=== PATIENT | male | born 1955 | race Caucasian/White ===

== ENCOUNTER 2020-07-05 09:02 | Outpatient (CLI) | payer MEDICARE, OTHER, SELFPAY ==
--- NOTE | ~2020-07-05 | US_ITS ---
EXAMINATION: US renal BI DATE: 07/05/2020 09:56 INDICATION: Stage III chronic kidney disease TECHNIQUE: Multiple ultrasound grayscale images of the kidneys were obtained. COMPARISON: CT dated 01/24/2018 FINDINGS: The right kidney measures 11.8 x 6.2 x 5.7 cm. The left kidney measures 11.1 x 4.4 x 5.0 cm. The kidn eys demonstrate normal echogenicity. Couple anechoic simple appearing left renal cysts the larger at the upper pole measuring 4.6 cm and the smaller at the lower pole measuring 1.6 cm. There is no hydro nephrosis in either kidney. No stones identified. The bladder is normal. IMPRESSION: 1. A couple simple left renal cysts. Otherwise normal kidneys with no hydronephrosis. Reviewed, dictated and finalized at location B. IMPRESSION: 1. A couple simple left renal cysts. Otherwise normal kidneys with no hydronep hrosis.
== END 2020-07-05 09:03 | disposition home or self-care (01) ==
LOC: ANHIMG 09:09
PROVIDERS: PCP Family Medicine; Visit Provider Internal Medicine Nephrology
DX: N18.3 Chronic kidney disease, stage 3 (moderate) (principal); N28.1 Cyst of kidney, acquired
CPT/HCPCS: 76775

== ENCOUNTER 2021-07-23 09:10 | Outpatient (CLI) | payer MEDICARE, OTHER, SELFPAY ==
--- NOTE | ~2021-07-23 | XR_ITS ---
XR abdomen/kub 1V 07/23/2021 09:31 Indication: Diarrhea. Bowel resection history. Procedure: KUB Comparison: CT dated 01/24/2018 Findings: Bowel pattern is nonobstructive. There is atherosclerotic change of the abdominal aorta wit h a estimated transverse dimension of approximately 7 cm. No acute osseous abnormality. Lung bases ar e unremarkable. Impression: 1: Infrarenal abdominal aortic aneurysm with a estimated size of 7 cm. Recommend correlation with con trast-enhanced CT. 2: Nonobstructive bowel gas pattern. Reviewed, dictated and finalized at location A. Impression: 1: Infrarenal abdominal aortic aneurysm with a estimated size of 7 cm. Recommen d correlation with contrast-enhanced CT. 2: Nonobstructive bowel gas pattern.
== END 2021-07-23 09:11 | disposition home or self-care (01) ==
LOC: ANHIMG 09:13
PROVIDERS: PCP Family Medicine; Visit Provider Nurse Practitioner Family
DX: R19.7 Diarrhea, unspecified (principal); I71.4 Abdominal aortic aneurysm, without rupture
CPT/HCPCS: 74018

== ENCOUNTER 2022-12-04 07:57 | Emergency (ER) | payer MEDICARE, OTHER, SELFPAY ==
[2022-12-04 08:01] VITALS: BP 108/82; PULSE 93; RESP 18; TEMP 37.5; O2SAT 96
[2022-12-04 08:59] LABS: Basophils Percent Auto 0.3 % (0.2-1.2); Eosinophils Percent Auto 9.6 % (0-4.4); Hemoglobin 13.1 g/dL (14.0-18.0); Immature Granulocyte Absolute 0.03 K/mm3 (0.00-0.031); Immature Granulocyte Percent A 0.3 % (0-0.5); Lymphocytes Absolute Auto 0.42 K/mm3 (0.9-3.2); Lymphocytes Percent Auto 4.2 % (18.3-44.2); Mean Corpuscular HGB Conc 33.6 g/dl (32-36); Mean Corpuscular Hemoglobin 30.9 pg (26-34); Mean Platelet Volume 9.1 fl (7.4-10.4); Monocytes Absolute Auto 0.6 K/mm3 (0.1-0.6); Monocytes Percent Auto 5.5 % (2.6-8.5); Neutrophils Percent Auto 80.1 % (45.5-73.1); Platelet Count Result 170 k/mm3 (150-375); Red Blood Count 4.24 M/mm3 (4.6-6.20); Red Cell Distribution Width 14.4 % (11.5-14.5)
[2022-12-04 09:00] VITALS: BP 106/53; PULSE 73; RESP 16; O2SAT 97
[2022-12-04 09:14] LABS: Alanine Aminotransferase 21 U/L (6-50); Albumin Level 4.3 g/dL (3.5-5.1); Alkaline Phosphatase 86 U/L (38-126); Anion Gap 4 mmol/L (8-16); Aspartate Amino Transferase 24 U/L (17-59); Bilirubin,Total 0.5 mg/dL (0.2-1.3); Blood Urea Nitrogen 18 mg/dL (9-20); CRP 2.5 mg/dL (<1.0); Calcium 8.9 mg/dL (8.4-10.2); Carbon Dioxide 26 mmol/L (22-30); Chloride 103 mmol/L (98-107); Estimated CRCL calculation 53 ml/min; Estimated Glomerular Filt Rate 50; Glucose 121 mg/dL (65-110); Potassium 4.3 mmol/L (3.4-5.0); Sodium 133 mmol/L (137-145); Uric Acid 8.6 mg/dL (3.5-8.5)
[2022-12-04 09:25] LABS: Influenza A QL RT-PCR Negative (Negative); Influenza B QL RT-PCR Negative (Negative); SARS-CoV-2 RNA PCR Negative
[2022-12-04] MEDS: KETOROLAC 15 MG/ML VIAL (*BKC) IV PUSH (09:27)
[2022-12-04] MEDS: SODIUM CHLORIDE 0.9% IV 1,000 ML 999 ML IV CONT (09:27)
[2022-12-04 09:35] LABS: Erythrocyte Sedimentation Rate 16 mm/hr (0-20)
[2022-12-04 10:00] VITALS: BP 109/51; PULSE 67; RESP 16; O2SAT 97
--- NOTE | 2022-12-04 10:23 | ED.EXTPRO ---
HPI - Extremity Problem General Chief complaint: Extremity Problem,Nontraumatic Stated complaint: pain in bilateral knees Time Seen by Provider: 12/04/22 08:04 History of Present Illness HPI Narrative: Patient is a 67-year-old male who presents ER with pain to the bilateral knees and ankles. Onset this morning. Has trouble ambulating due to the pain. Feels like the area might be more swollen. Has history of gout. Has bilateral knee replacements as well. 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 No fevers but did have some chills. No chest pain or chest pressure. Reports he had a dental procedure 2 weeks ago and took 3 antibiotics. No history of an infected joint. Related Data Home Medications Medication Instructions Recorded Confirmed lisinopril 40 mg tablet 40 mg PO DAILY 10/11/19 03/18/22 metoprolol succinate 100 mg 50 mg PO DAILY 10/24/19 03/18/22 tablet,extended release 24 hr simvastatin 40 mg tablet 40 mg PO DAILY 04/13/20 03/18/22 cholecalciferol (vitamin D3) 50 50 mcg PO DAILY 06/11/21 03/18/22 mcg (2,000 unit) chewable tablet Allergies Allergy/AdvReac Type Severity Reaction Status Date / Time methylprednisolone Allergy Mild Rash Verified 12/04/22 08:16 Review of Systems Review of Systems: All systems reviewed & are unremarkable except as noted in HPI and below Constitutional: Constitutional: Reports chills, Denies fatigue and Denies fever(s) ENT: Denies nasal congestion and Denies sore throat Cardiovascular: Cardiovascular: Denies chest pain, Denies rapid heart rate and Denies radiating jaw, neck or arm pain Respiratory: Respiratory: Denies cough and Denies dyspnea Musculoskeletal: Musculoskeletal: Reports arthralgias, Denies joint swelling and Denies muscle cramps PMF Past Medical History Medical History Arthritis CPAP (continuous positive airway pressure) dependence Diverticulitis Frequent loose stools Full dentures GERD (gastroesophageal reflux disease) Gout HTN (hypertension) Hyperlipidemia Hypothyroid Nicotine dependence Sleep apnea Tobacco abuse Wears glasses reading Surgical History Surgical History H/O colonoscopy H/O umbilical hernia repair History of appendectomy Family History Family History Mother Hypertension Sibling Alzheimer disease Other Diabetes mellitus Family history of coronary artery disease Family history of kidney disease Social History Social History Smoking packs per day: 0.5 Smoking cigarettes per day: 10.0 Tobacco type: cigarettes Second hand tobacco smoke exposure: Yes Alcohol intake: never Substance use: never Substance use type: does not use Occupation/Education: retired Gender identity (if verbalized by the patient): Male Spiritual care concerns: No Agree to blood products: Yes Exam Narrative: GENERAL: Well-appearing, well-nourished, and in no acute distress. HEAD: Normocephalic, atraumatic. ENT: Mucous membranes moist. CHEST: Clear to auscultation. No respiratory distress. HEART: Regular rate and rhythm. Normal peripheral pulses. EXTREMITIES: Normal range of motion of the ankles bilaterally without reproducible tenderness. No reproducible tenderness to the knees bilaterally with palpation but patient has decreased range of motion with flexion due to pain. SKIN: Warm, dry, no rash. NEURO: Alert and oriented x3. PSYCH: Normal mood and affect. Course Course Emergency Course: Patient resting comfortably. Feels much better after receiving some IV Toradol low-dose. He has been informed of his lab findings. I discussed the case with Dr. Carlson with orthopedic surgery. He believes with elevated uric acid and patient's previous history of gout as well as the lack of red and swollen joints is likely
[2022-12-04] MEDS: COLCHICINE 0.6 MG TABLET 1.2 MG PO (10:48)
[2022-12-04] MEDS: COLCHICINE 0.6 MG TABLET PO (10:49)
[2022-12-04 11:30] VITALS: BP 100/65; PULSE 68; RESP 20; O2SAT 97
== END 2022-12-04 11:30 | disposition home or self-care (01) ==
PROVIDERS: Emergency Provider Emergency Medicine; PCP Family Medicine
DX: M10.9 Gout, unspecified (principal); Z20.822 Contact with and (suspected) exposure to COVID-19; I10 Essential (primary) hypertension; E78.5 Hyperlipidemia, unspecified; E03.9 Hypothyroidism, unspecified; M19.90 Unspecified osteoarthritis, unspecified site; K21.9 Gastro-esophageal reflux disease without esophagitis; F17.210 Nicotine dependence, cigarettes, uncomplicated; Z96.653 Presence of artificial knee joint, bilateral
CPT/HCPCS: 36415; 80053; 84550; 85025; 85652; 86140; 87636; 96361; 96374; 99284; A9270; J1885; J7030

== ENCOUNTER 2023-07-31 15:08 | Outpatient (CLI) | payer MEDICARE, OTHER, SELFPAY ==
--- NOTE | ~2023-07-31 | XR_ITS ---
EXAMINATION:XR cervical spine 4-5V DATE: 07/31/2023 15:28 INDICATION: Neck pain TECHNIQUE: AP, lateral, lateral swimmers and odontoid views of the cervical spine are provided. COMPARISON: CT, 10/11/2019 FINDINGS: Alignment is normal. The odontoid process is intact. No fracture is identified. The vertebr al body heights are maintained. There is mild to moderate loss of intervertebral disc space height th roughout the cervical spine. There is also multilevel mild to moderate facet and uncovertebral joint osteoarthritis. Prevertebral soft tissues are normal. IMPRESSION: 1. Mild to moderate cervical spondylosis without acute findings. Reviewed, dictated and finalized at location F.
--- NOTE | ~2023-07-31 | XR_ITS ---
EXAMINATION: XR thoracic spine 3V DATE: 07/31/2023 15:28 INDICATION: Thoracic spine pain TECHNIQUE: AP, lateral and lateral swimmer's views of the thoracic spine were obtained. COMPARISON: None. FINDINGS: Bone alignment is normal. There is no fracture. There is mild to moderate loss of intervert ebral disc space height at multiple levels. Small degenerative osteophytes project from the anterior endplates of multiple vertebral bodies. IMPRESSION: 1. Moderate thoracic spondylosis without acute findings or significant interval change. Reviewed, dictated and finalized at location F.
== END 2023-07-31 15:09 | disposition home or self-care (01) ==
LOC: ANHIMG 15:12
PROVIDERS: PCP Family Medicine; Visit Provider Family Medicine
DX: M47.894 Other spondylosis, thoracic region (principal); M47.892 Other spondylosis, cervical region
CPT/HCPCS: 72050; 72072

== ENCOUNTER → 2023-08-10 09:11 | Outpatient (CLI) | payer MEDICARE, OTHER, SELFPAY ==
--- NOTE | ~2023-08-10 | MR_ITS ---
EXAMINATION: MR thoracic spine wo con DATE: 08/10/2023 10:11 INDICATION: Thoracic radiculopathy TECHNIQUE: Magnetic resonance imaging (MRI) of the thoracic spine was performed without intravenous c ontrast. Sagittal localizer T1-weighted FSE of the cervicothoracic spine was obtained. Thoracic spine sequences included sagittal T2-weighted FSE, sagittal T1-weighted SE, Sagittal T2-weighted FS FSE, a nd axial T2-weighted FSE. COMPARISON: None FINDINGS: 7 degrees mid to lower thoracic dextrocurvature and 5 degrees upper thoracic levocurvature. Sagittal alignment is normal. There are bulky right anterior endplate osteophytes at T8-T9 and T9-T10. There i s some marrow edema at the right side of theT10 vertebral body. There is also a small T1 hyperintense hemangioma in the T10 vertebral body. Marrow signal is otherwise normal throughout. Multilevel mild disc height loss throughout the thoracic spine. Small right paracentral disc protrusion at T3-T4 whic h flattens the right ventral surface of the cord and results in central canal stenosis. Small bilater al paracentral disc protrusions at T6-T7 also resulting in mild central canal stenosis. There are jarad ular fissures with small disc extrusions at the left subarticular zone at T9-T10 and T10-T11 with dis c material extending a few millimeter cephalad to the level of the inferior endplates of T9 and T10 r espectively. These each result in moderate left sided neural foraminal stenosis. Only minimal central canal stenosis at both levels. There is normal spinal cord signal. The conus terminates at the below the level of the field of imaging which is at the level of L1. Moderate bilateral facet osteoarthrit is at T9-T10 through T11-T12. There is minimal to mild facet osteoarthritis in the more cephalad thor acic spine. There is mild neural foraminal stenosis on the right at T9-T10 and T10-T11 and bilaterall y at T11-T12. Minimal neural foraminal stenosis at a few of the more cephalad levels. Paravertebral s oft tissues are unremarkable. IMPRESSION: 1. Mild thoracic spondylosis. Reviewed, dictated and finalized at location A.
--- NOTE | ~2023-08-10 | MR_ITS ---
EXAMINATION: MR cervical spine wo con DATE: 08/10/2023 10:01 INDICATION: Cervicalgia TECHNIQUE: Magnetic resonance imaging (MRI) of the cervical spine was performed without intravenous c ontrast. Sequences included sagittal T2-weighted FSE, sagittal T2-weighted FS FSE, sagittal T1-weight ed FSE, axial MERGE and axial T2-weighted FSE. COMPARISON: None FINDINGS: 7 degrees upper cervical dextrocurvature. Vertebral body heights are normal. Bone marrow signal int ensity is normal. Mild disc height loss at C3-C4, C5-C6 and C6-C7. Cord signal intensity is normal. V isualized cervical soft tissues are unremarkable. The following disc levels are specifically discusse d: C2-C3: The disc does not extend beyond the endplate margin. There is no uncovertebral joint osteoarth ritis. There is mild right and moderate left facet joint osteoarthritis. There is minimal left neural foraminal stenosis. There is no central canal stenosis. C3-C4: Disc is bulging. There is mild right and moderate left uncovertebral joint osteoarthritis. The re is mild right and severe left facet joint osteoarthritis. There is moderate right and moderate to severe left neural foraminal stenosis. There is mild central canal stenosis. C4-C5: Disc is mildly bulging. There is mild bilateral uncovertebral joint osteoarthritis. There is m ild right and severe left facet joint osteoarthritis. There is moderate bilateral neural foraminal st enosis. There is minimal central canal stenosis. C5-C6: Disc is bulging eccentric to the right. There is mild left and moderate right uncovertebral rin int osteoarthritis. There is moderate bilateral facet joint osteoarthritis. There is moderate bilater al neural foraminal stenosis. There is mild central canal stenosis with mild indentation of the right ventral surface of the cord. C6-C7: Disc is bulging, eccentric to the left with annular fissure. There is mild left and moderate r ight uncovertebral joint osteoarthritis. There is mild right and mild to moderate left facet joint os teoarthritis. There is mild left and mild to moderate right neural foraminal stenosis. There is mild central canal stenosis with mild indentation of the central to left ventral surface of the cord. C7-T1: The disc does not extend beyond the endplate margin. There is no uncovertebral joint osteoarth ritis. There is mild right and moderate left facet joint osteoarthritis. There is mild left neural fo raminal stenosis. There is no central canal stenosis. IMPRESSION: 1. Mild to moderate cervical spondylosis. Reviewed, dictated and finalized at location A.
== END ==
PROVIDERS: PCP Family Medicine; Visit Provider Family Medicine
DX: M43.04 Spondylolysis, thoracic region (principal); M43.02 Spondylolysis, cervical region
CPT/HCPCS: 72141; 72146

== ENCOUNTER 2024-01-13 02:21 | Day surgery (SDC) | payer MEDICARE, OTHER, SELFPAY ==
[2024-01-12 14:32] VITALS: BMI 36.6
[2024-01-13] VITALS (10 sets, daily range): BP systolic 109–153; BP diastolic 56–73; PULSE 58–64; RESP 14–18; O2SAT 95–98
--- NOTE | 2024-01-13 13:12 | WPDHPUPDATE1 ---
History and Physical Update Update Date/Time: 01/13/24 13:12 History and Physical has been reviewed, including an updated exam of the patient. There are NO changes in the patient's condition. Risks, benefits, and alternatives have been discussed and questions answered. Patient agrees to proceed with procedure.
--- NOTE | 2024-01-13 13:12 | WPDMODSED ---
Moderate Sedation Note-Pt Data Patient Data Diagnosis: Aortic stenosis and aortic regurgitation, dizziness Present Complaint: None Procedure to be performed/Plan: Transesophageal echocardiogram Allergies Allergy/AdvReac Type Severity Reaction Status Date / Time methylprednisolone Allergy Mild Rash Verified 01/13/24 11:31 Home Medications Medication Instructions Recorded Confirmed Type lisinopril 40 mg tablet 40 mg PO DAILY 10/11/19 01/12/24 History aspirin 81 mg chewable tablet 81 mg PO DAILY #30 tabs 10/12/19 01/12/24 Rx metoprolol succinate 100 mg 50 mg PO DAILY 10/24/19 01/12/24 History tablet,extended release 24 hr simvastatin 40 mg tablet 40 mg PO DAILY 04/13/20 01/12/24 History cholecalciferol (vitamin D3) 50 50 mcg PO DAILY 06/11/21 01/12/24 History mcg (2,000 unit) chewable tablet levothyroxine 50 mcg tablet 50 mcg PO DAILY #90 tabs 05/13/23 01/12/24 Rx allopurinol 100 mg tablet 150 mg PO DAILY #135 tabs 07/20/23 01/12/24 Rx colchicine 0.6 mg tablet 0.6 mg PO BID PRN gout #60 tabs 09/11/23 01/12/24 Rx cyclobenzaprine 10 mg tablet 10 mg PO TID 09/15/23 01/12/24 History gabapentin 300 mg capsule 300 mg PO TID 09/15/23 01/12/24 History Current Medications: Active Medications Sodium Chloride (Normal Saline Iv) 1,000 mls @ 30 mls/hr IV CONT .Q24H FAHAD Sedation/Anesthesia: No previous sedation/anesthesia problems (including family history). 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 Chronic diarrhea CPAP (continuous positive airway pressure) dependence Diverticulitis Frequent loose stools Full dentures GERD (gastroesophageal reflux disease) Gout HTN (hypertension) Hyperlipidemia Hypothyroid IBS (irritable bowel syndrome) Nicotine dependence Sleep apnea Wears glasses reading Surgical History Surgical History H/O colonoscopy H/O umbilical hernia repair History of appendectomy History of bowel resection Family History Family History Mother Hypertension Sibling Alzheimer disease Other Diabetes mellitus Family history of coronary artery disease Family history of kidney disease Social History Social History Smoking packs per day: 0.75 Smoking cigarettes per day: 15.0 Years smoked: 50 Smoking pack-years: 37.50 Smoking status: Current every day smoker Tobacco type: cigarettes Second hand tobacco smoke exposure: Yes Alcohol intake: never Substance use: never Substance use type: marijuana Lack of Transportation: No Lack of Food: Never True Current Housing: I Have Housing Concerned About Future Housing: No Difficulty Paying Gas/Electric Bills: No Difficulty Paying for Meds: No Currently Unemployed: No Education: High School Diploma/GED Difficulty w/ Childcare or Family Care: No Living arrangements: with family Occupation/Education: retired Gender identity (if verbalized by the patient): Male Spiritual care concerns: No Agree to blood products: Yes Mod Sed Physical Exam Physical Exam Pre Procedural Exam: Normal: Appearance, Eyes, Ears, Nose, Neck (Supple, normal range of motion), Throat (Posterior hypopharynx clear, nonerythematous), Airway (Normal anatomy, no obstruction), Lungs, Heart Size, Heart Rate, Heart Rhythm, Neuro Exam, Liver, Extremities and Skin and Variation: Abdomen (Obese) Hours since solid foods: 12 Hours since liquid intake: 12 Mallampati Classification: class III Internal Medicine - PN: Obj Da Vital Signs Vital Signs: Vital Signs - 24 hr 01/13/24 11:33 01/13/24 12:30 01/13/24 12:35 Pulse Rate 60 63 58 L Respiratory Rate 16 14 17 Blood Pressure 134/70 153/71 H 132/6
--- NOTE | 2024-01-13 13:14 | WPDTEECHO ---
[facility] TransEsophageal Echocardiogram Date of procedure: 01/13/24 Procedure Type: Transesophageal echocardiogram Diagnosis: Aortic stenosis and regurgitation, dizziness Indications: Aortic stenosis and regurgitation, dizziness Image Quality: Acceptable Findings: Brief history present illness: Patient is a pleasant 68-year-old male with past medical history significant for hypertension, hyperlipidemia, tobacco abuse, Abdominal aortic aneurysm s/p repair, COPD, obesity, peripheral arterial disease with recurrent episodes of dizziness and near syncope. Patient underwent 2D echocardiogram which revealed significant abnormal aortic valve with regurgitation and stenosis not well characterized with recommendations for transesophageal echocardiogram for further characterization. Procedure in detail: After verbal and written informed consent was obtained the patient risks, benefits, and alternatives explained in detail the patient agreed to proceed with the plan of care as outlined above. The patient was evaluated at bedside in the [facility] procedure room. The posterior oropharynx, neck, and jaw angle all within normal limits on examination. Lungs were clear to auscultation. See pre-sedation note for further details The patient was then placed in the appropriate 30 to 45 degree angle supine position at a slight left lateral decubitus position. Patient was monitored throughout the study with telemetry, oxygen saturation, end-tidal CO2 monitoring, blood pressure, heart rate, and respirations. The posterior hypopharynx was then locally anesthetized using repeated administration of Hurricaine spray as well as gargled viscous lidocaine. After local anesthetic of the posterior hypopharynx was achieved and the oral bite block placed, moderate sedation was administered. After confirmation of adequate moderate sedation, the transesophageal echocardiogram probe was advanced through the oral bite block into the posterior hypopharynx and into the esophagus easily and without complication. Multiple, multiplanar echocardiographic images were obtained in multiple standard re- projections. Pulsed wave, continuous-wave, and color-flow Doppler were utilized in conjunction with this study. At the conclusion of the study, the transesophageal echocardiogram probe was removed easily and without complication. The patient tolerated the procedure well without difficulty. Patient was in sinus rhythm throughout the study. Moderate Sedation/Anesthesia administration: Patient reports no prior problems with sedation/anesthesia. Please see pre-sedation noted for physical examination documentation. As noted above, after adequate local anesthesia of the posterior hypopharynx was achieved, a total of 2 mg intravenous Versed and a total of 75 mcg intravenous Fentanyl in multiple divided doses was administered for moderate sedation. Sedation start time was 1234 and end time was 1259 for a total intra-service/procedure face-face time of 15 minutes. Sedation was administered by a qualified/certified observer Arpita Kelsey RN under my supervision with intra-procedure [id number] observation and management throughout the entirety of the procedure. There were no other issues or complications and patient tolerated the procedure well. See post-anesthesia documentation. FINDINGS: LEFT VENTRICLE: Size and systolic function were within normal limits without wall motion abnormalities with ejection fraction of 65% and mild concentric left ventricular hypertrophy. RIGHT VENTRICLE: Size and systolic function within normal limits. LEFT ATRIUM: Normal size. RIGHT ATRIUM: Normal size. INTERATRIAL SEPTUM: Interatrial septum is anatomically normal without evidence of shunt with color-flow Doppler, however, scant R to L shunt with injection of agitated saline with and without Valsalva consistent with patent foramen ovale (PFO). MITRAL VALVE: Mitral valve is anatomically normal mild
== END 2024-01-13 13:50 | disposition home or self-care (01) ==
PROVIDERS: PCP Family Medicine; Visit Provider Internal Medicine Cardiovascular Disease
PROC: (CPT 93312; principal; 2024-01-13 12:30)
DX: I35.2 Nonrheumatic aortic (valve) stenosis with insufficiency (principal); I51.7 Cardiomegaly; E78.2 Mixed hyperlipidemia; I12.9 Hypertensive chronic kidney disease with stage 1 through stage 4 chronic kidney disease, or unspecified chronic kidney disease; N18.30 Chronic kidney disease, stage 3 unspecified; K57.32 Diverticulitis of large intestine without perforation or abscess without bleeding; K21.9 Gastro-esophageal reflux disease without esophagitis; K58.9 Irritable bowel syndrome, unspecified; G47.30 Sleep apnea, unspecified; F17.210 Nicotine dependence, cigarettes, uncomplicated; F12.90 Cannabis use, unspecified, uncomplicated; Z79.82 Long term (current) use of aspirin; Z99.89 Dependence on other enabling machines and devices; Z98.890 Other specified postprocedural states; Z86.79 Personal history of other diseases of the circulatory system; Z82.49 Family history of ischemic heart disease and other diseases of the circulatory system
CPT/HCPCS: 93312; 93320; 93325; J2250; J3010; J7030

== ENCOUNTER 2024-11-09 11:01 | Outpatient (CLI) | payer MEDICARE, OTHER, SELFPAY ==
--- NOTE | ~2024-11-09 | US_ITS ---
EXAMINATION: US renal BI DATE: 11/09/2024 11:48 INDICATION: Chronic kidney disease, stage IIIB. TECHNIQUE: Multiple ultrasound grayscale images of the kidneys were obtained. COMPARISON: Ultrasound 07/05/2020 FINDINGS: The right kidney measures 11.2 x 5.3 x 4.3 cm. The left kidney measures 12.9 x 4.9 x 5.7 cm. The kidn eys demonstrate normal parenchymal echogenicity. There are cysts in the kidneys measuring up to 2.5 c m on the left. There is no hydronephrosis. The bladder is normal. IMPRESSION: 1. Normal kidney sizes. No hydronephrosis. Reviewed, dictated and finalized at location A. ED OPERATOR
== END 2024-11-09 11:02 | disposition home or self-care (01) ==
PROVIDERS: PCP Physician Assistant; Visit Provider Internal Medicine Nephrology
DX: N18.32 Chronic kidney disease, stage 3b (principal)
CPT/HCPCS: 76775